=== PATIENT | male | born 1960 | race Caucasian/White ===

== ENCOUNTER 2022-12-31 09:24 | Observation (INO) | payer OTHER ==
[2022-12-31] MEDS ORDERED: Aspirin 81 MG Tab.Chew ONE (09:28)
[2022-12-31 10:14] LABS: ANION GAP 14.1 meq/L (7-15); CHLORIDE,CL 104 mmol/L (98-107); SODIUM,NA 141 mmol/L (136-145)
[2022-12-31 10:15] LABS: ESTIMATED GFR 54 mL/min (>=60)
[2022-12-31] MEDS ORDERED: Sodium Chloride 0.9% 1,000 ML IV ONE ×2 (10:19→11:30)
[2022-12-31] MEDS ORDERED: Aspirin 81 MG Tab.Chew PO ONE (10:26)
[2022-12-31 10:28] LABS: CORONAVIRUS COVID-19 NAA NEGATIVE (NEGATIVE); RESPIRATORY SYNCYTIAL VIR NAA NEGATIVE (NEGATIVE)
[2022-12-31] MEDS: Sodium Chloride 0.9% 10 ML Syringe FLUSH PRN (10:31)
[2022-12-31] MEDS ORDERED: Iopamidol 755 Mg/ML 100 ML Bottle IVPUSH ONE (10:43)
[2022-12-31] MEDS ORDERED: Iopamidol 755 Mg/ML 100 ML Bottle ONE (10:45)
[2022-12-31] MEDS ORDERED: Magnesium Sulfate/Water 2 GM in Premix Bag 1 BAG IV ONE (10:50)
[2022-12-31] MEDS ORDERED: Ondansetron 4 MG Tab.DIS PO PRN (13:00)
[2022-12-31] MEDS ORDERED: Ondansetron 4 MG/2 ML SDV IVPUSH PRN (13:00)
[2022-12-31] MEDS: Acetaminophen 325 MG Tab PO PRN (17:17)
[2022-12-31] MEDS ORDERED: metFORMIN 500 MG Tab PO SCH (18:00)
[2023-01-01] MEDS: Acetaminophen 325 MG Tab PO PRN (00:17)
[2023-01-01] MEDS ORDERED: glipiZIDE 5 MG Tab.ER PO SCH (08:00)
[2023-01-01] MEDS ORDERED: Lisinopril 5 MG Tab PO SCH (08:00)
[2023-01-01] MEDS ORDERED: atorvaSTATin 10 MG Tab PO SCH (08:00)
[2023-01-01] MEDS ORDERED: Magnesium Sulfate/Water 2 GM in Premix Bag 1 BAG IV ONE (08:45)
[2023-01-01] MEDS ORDERED: Magnesium Oxide 400 MG Tab PO ONE (08:45)
[2023-01-01] MEDS: Sodium Chloride 0.9% 10 ML Syringe FLUSH PRN (09:33)
== END 2023-01-01 12:30 | disposition home or self-care (01) ==
LOC: LL.ED 09:24 → LL.MS 11:16
PROVIDERS: ADMIT Emergency Medicine; ATTEND Physician Assistant Medical
DX: E83.42 Hypomagnesemia (principal); R55 Syncope and collapse; K44.9 Diaphragmatic hernia without obstruction or gangrene; Z79.899 Other long term (current) drug therapy; Z79.84 Long term (current) use of oral hypoglycemic drugs; Z87.891 Personal history of nicotine dependence; Z20.822 Contact with and (suspected) exposure to COVID-19
CPT/HCPCS: 0241U; 36415; 71045; 71275; 80048; 80053; 81003; 82947; 83036; 83605; 83735; 83880; 84484; 85025; 85379; 85610; 93005; 93010; 96360; 96361; 96365; 96366; 99285-25; A9270-GY; G0378; J3475; J3490; J7030; Q9967